=== PATIENT | male | born 1945 ===

== ENCOUNTER 2020-09-13 10:55 | Outpatient (REF) | payer OTHER, SELFPAY ==
--- NOTE | 2020-09-13 14:32 | MHC.AU.P13 ---
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 Pemberton reports that he has been having significant difficulties inserting the hearing aids due to diabetic neuropathy in his hands. I counseled him extensively today on how to properly insert the hearing aids, but he had a very hard time manipulating them and getting them behind his ear properly. Mr. Pemberton would likely benefit from rechargeable ITE style hearing aids due to his significant dexterity concerns. I advised Mr. Pemberton that a new audiogram would be required in order to pursue new hearing aids, as it has been over six months since his last evaluation. We will also need approval from [facility] to proceed with new hearing aids. Also during today's visit, I noticed that the earmolds were on the wrong hearing aids and switched them to the correct side. Recommendations: Recommendations: Need an order for an updated audiological evaluation in order to pursue new hearing aids. Will need [facility] approval for new rechargeable, in-the-ear style hearing aids that will be a better fit for Mr. Pemberton given his dexterity concerns. Diagnosis Code(s): Primary Diagnosis: H90.3 Bilateral Sensorineural Hearing Loss Services Performed: Assorted Hearing Aid Service: No Charge Visit Signature: Provider: Hayden Ross, [facility]
== END 2020-09-13 10:56 | disposition home or self-care (01) ==
LOC: HO.HAP 10:55
PROVIDERS: Visit Provider Internal Medicine Rheumatology
DX: Z13.89 Encounter for screening for other disorder (principal)
CPT/HCPCS: 92700

== ENCOUNTER 2021-02-26 09:43 | Outpatient (REF) | payer OTHER, SELFPAY ==
--- NOTE | 2021-02-26 13:46 | MHC.AU.AHA ---
Adult Audiological Evaluation Date of Visit: 02/26/21 Reason for Appointment: History of hearing loss. Patient arrives to determine if there has been a change in hearing. Patient has a pair of [employer]on Nera2 BTEs that are almost 5 years old. He reports that he has not been wearing them, as they are too difficult for him to use independently. He is unable to change the battery or insert the instruments in his ears on his own. 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: [employer] Model: Nera2 Pro BTE Serial Number: [id number] Repair Warranty: 02/07/2021 Dispensed By: [facility] Date of Fitting: Per [employer], originally shipped in June 2016 Hearing Instrument History- Left Ear: Cartoon 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: [employer] Model: Nera2 Pro BTE Serial Number: [id number] Warranty: 10/16/2018 Dispensed By: [facility] [employer] [place] Date of Fitting: Per [employer], originally shipped in June 2016 Otoscopy: Right Ear: Unremarkable Left Ear: Unremarkable Hearing Evaluation: Transducer(s) Used: Insert Earphones Method: Conventional Audiometry Stimuli Used: Pure Tones Right Ear: Description of Hearing: Moderately-severe to severe sensorineural hearing loss Left Ear: Description of Hearing: Moderately-severe to severe sensorineural hearing loss Speech Recognition Threshold (SRT): Method Used: Recorded Lists Stimuli Used: Spondee Words Right Ear: 70 dBHL Left Ear: 65 dBHL Word Discrimination: Method: Recorded Lists Word Lists Used: NU-6 Right Ear: 68% at 85 dBHL Left Ear: 72% at 85 dBHL Most Comfortable Level (MCL): Right Ear: 85 dBHL Left Ear: 85 dBHL Comparison: Compared to the most recent evaluation: Hearing is stable. Interpretation of Results: Patient has a significant degree of hearing loss, which can be expected to impact his communication ability. Patients with this level of hearing loss have difficulty hearing and understanding speech at normal conversational levels, which was observed during today's visit. Use of amplification is highly recommended. Recommendations: Audiological re-evaluation in one year. See Hearing Aid Evaluation report for more information. Diagnosis: Primary Diagnosis: H90.3 Bilateral Sensorineural Hearing Loss Services Performed: Comprehensive Audiological Evaluation (CPT 33838) Signature: Provider: Hayden De La Paz, IVANNA-A
--- NOTE | 2021-02-26 13:48 | MHC.AU.HAS ---
Hearing Aid Evaluation Date of Visit: 02/26/21 Historical Information: Description of Hearing: Moderately-severe to severe sensorineural hearing loss bilaterally Current personal amplification information, if applicable: [employer]on Nera2 Pro BTEs Summary: Patient was seen today for audiological evaluation (see separate report for details). Patient reports that he has been unable to wear his current hearing aids, as he cannot use them independently. He is unable to place them in his ears or change the batteries. Patient's current hearing aids are almost 5 years old. A request will be sent to his insurance for new hearing aids that will be easier for patient to manipulate on his own, such as a pair of rechargeable ITEs. Impressions were taken bilaterally without incident. If able to proceed, a pair of [employer] 1600 rechargeable ITEs will be ordered. Action Taken/Action Needed: Medical Clearance to be requested from PCP/[facility] A request for new hearing aids will be sent to [facility]. Once we receive the authorization, hearing aids can be ordered, and [facility] can be contacted to arrange a hearing aid fitting. Primary Diagnosis: H90.3 Bilateral Sensorineural Hearing Loss Signature: Provider: Hayden De La Paz, CCC-A
--- NOTE | 2021-02-26 14:12 | MHC.AU.MED ---
Medical Clearance for Hearing Instrumentation Date: 02/26/21 Patient Name: Sammy Pemberton Date of : 1945 Referring Provider: Cristobal Forrest MD We have seen your patient on 02/26/21 and have determined that they are a candidate for amplification (See accompanying report). Specifically, they would benefit from: Hearing aid use in both ears There is a statute that addresses Medical Evaluation Requirements prior to fitting a patient with a hearing aid. According to [place] statute [facility] CMR:6.03(1), (a) General. Except as provided in 265 CMR 6.03(1)(b), a environmental health sanitarian shall not sell a hearing aid unless the prospective user has presented to the environmental health sanitarian a written statement signed by a licensed physician that states that the patient's hearing loss has been medically evaluated and the patient may be considered a candidate for a hearing aid. The medical evaluation must have taken place within the preceding six months. Please note: Due to the [place] Statute referenced above, we cannot accept a signature other than that of a licensed physician. CORRECTION OFFICER and PA signatures cannot be accepted. I am in agreement with the above recommendation. There is no medical contraindication for hearing instrumentation. Physician Signature Date Physician Name (Printed)
== END 2021-02-26 09:44 | disposition home or self-care (01) ==
LOC: HO.SH 09:43
PROVIDERS: Visit Provider Internal Medicine
DX: Z46.1 Encounter for fitting and adjustment of hearing aid (principal); H90.3 Sensorineural hearing loss, bilateral
CPT/HCPCS: 92557; 92591; V5275